=== PATIENT | female | born 1955 | race Caucasian/White ===

== ENCOUNTER → 2023-11-13 13:04 | Outpatient (REF) | payer MEDICARE, SELFPAY | LOC: HWRAD 13:04 | PROVIDERS: ATTENDING PHYSICIAN Family Medicine | DX: Z87.891 Personal history of nicotine dependence (principal); M25.551 Pain in right hip | CPT/HCPCS: 71271; 73502 ==

== ENCOUNTER → 2023-11-15 14:13 | Outpatient (REF) | payer MEDICARE, SELFPAY | LOC: HWWDC 14:13 | PROVIDERS: ATTENDING PHYSICIAN Family Medicine | DX: Z12.31 Encounter for screening mammogram for malignant neoplasm of breast (principal) | CPT/HCPCS: 77063; 77067 ==

== ENCOUNTER 2024-01-14 16:19 | Emergency (ER) | payer MEDICARE, SELFPAY ==
[2024-01-14 16:26] VITALS: BP 185/104
[2024-01-14 16:59] LABS: % Basophils 0.5 % (0-2); % Eosinophils 0.3 % (0-6); % Immature Granulocytes 0.3 % (0-0.5); % Lymphocytes 8.3 % (20.5-51.1); % Monocytes 4.8 % (1.7-9.3); % Neutrophils 85.8 % (42.2-75.2); Absolute Basophils 0.1 10^3/uL (0-0.2); Absolute Eosinophils 0.1 10^3/uL (0-0.7); Absolute Lymphocytes 1.2 10^3/uL (1.2-3.4); Absolute Monocytes 0.7 10^3/uL (0.1-0.6); Absolute Neutrophils 12.5 10^3/uL (1.4-6.5); Hematocrit 42.9 % (37.0-47.0); Hemoglobin 13.8 g/dL (12.0-16.0); Mean Corp Hgb Conc. 32.2 g/dL (33.0-37.0); Mean Corpuscular Volume 93.3 fL (81.0-99.0); Mean Platelet Volume 12.4 fL (7.4-10.4); Nucleated Red Blood Cells % 0 %; Platelet Count 226 10^3/uL (130-400); Red Cell Dist. Width 14.6 % (11.5-14.5); White Blood Cell Count 14.6 10^3/uL (4.8-10.8)
[2024-01-14 17:17] LABS: ALT (SGPT) 22 U/L (0-35); AST (SGOT) 28 U/L (14-36); Albumin 4.2 g/dl (3.5-5.0); Alkaline Phosphatase 74 U/L (38-126); Blood Urea Nitrogen 10 mg/dl (7-17); Calcium 9.9 mg/dl (8.4-10.2); Carbon Dioxide 26 mmol/L (22-30); Chloride 106 mmol/L (98-107); Glucose 103 mg/dl (70-99); Potassium 4.2 mmol/L (3.5-5.1); Sodium 140 mmol/L (135-145); Total Bilirubin 0.5 mg/dl (0.2-1.3); Total Protein 6.8 g/dl (6.3-8.2); eGFR > 60.00
[2024-01-14 17:23] LABS: Troponin I < 0.012 ng/ml
[2024-01-14 20:12] VITALS: BP 107/95
[2024-01-14 21:37] VITALS: BP 128/81
[2024-01-14 21:42] VITALS: BP 128/81
--- NOTE | 2024-01-14 21:53 | ED.GENMED ---
History of Present Illness
General
Chief Complaint: Chest Pain
Source: patient and spouse
Exam Limitations: none
Time Seen by Provider: 01/14/24 19:00
Nursing documentation reviewed up to this point in time: agreed with
History of Present Illness
History of Present Illness:
68-year-old female past medical history of hyperlipidemia, anemia presenting to the emergency department today with concerns of cough some sore throat that she felt shortly after trying to swallow an iron pill earlier today. Has had some nausea.
Denies any specific chest pain at this point did have some chest pain earlier. Symptoms have been improving over the last few hours. Denies fevers
Past History
Past History
ED Past Medical History: GERD (hiatel hernia)
Social History
Tobacco: Smoker
Alcohol: None
Drug: None
Personal:
Living: with family
Review of Systems
Review of Systems
Allergies reviewed?: Yes
All Other Systems: ROS reviewed and negative except as documented in HPI and ROS
Phy Exam
Physical Exam
Physical Exam:
GENERAL: Alert , in no apparent distress
EYE: pupils equal and reactive
NECK: Supple, no significant adenopathy.
ENT: o/p clr, mmm.
CARDIAC: Regular rate and rhythm .
LUNGS: Clear breath sounds bilaterally, no acute respiratory distress, no wheezes/rales/rhonchi
ABDOMEN: Soft, without focal tenderness, no r/g, no cvat
NEUROLOGICAL: Alert and oriented, no focal neuro deficits
SKIN: Warm and dry, skin intact.
MUSCULOSKELETAL: No edema, well perfused.
PSYCH: Normal and appropriate interaction.
Scores
Heart Score for Chest Pain Patients
STEMI patient?: No
History: Slightly or Non-Suspicious
ECG: Normal
Age: >/= 65 years
Risk Factors: 1 or 2 Risk Factors
Troponin: </= Normal Limit
Heart Score for Chest Pain Patients: 3
Heart Score Risk: 2.5% MACE over next 6 weeks
Course
Orders/Labs/Results
Orders:
Orders
01/14/24 16:21
Electrocardiogram (*1) Urgent
Reason for Study: Chest Pain
EKG- Treatment ONCE
01/14/24 16:47
Complete Blood Count/With Diff Urgent
Comprehensive Metabolic Panel Urgent
Troponin I Urgent
01/14/24 18:59
Chest [CR Chest - 2 Views ] Urgent
Comment:
Reason For Exam: cp aspiated pill?
01/14/24 19:01
Abdomen Xray - 1 View [CR Abdomen - 1 View] Urgent
Comment:
Reason For Exam: swallowed fb
Abnormal Lab Results
01/14/24
16:47
WBC 14.6 H 10^3/uL
(4.8-10.8)
MCHC 32.2 L g/dL
(33.0-37.0)
RDW 14.6 H %
(11.5-14.5)
MPV 12.4 H fL
(7.4-10.4)
Absolute Neuts (auto) 12.5 H 10^3/uL
(1.4-6.5)
Absolute Monos (auto) 0.7 H 10^3/uL
(0.1-0.6)
Neutrophils % 85.8 H %
(42.2-75.2)
Lymphocytes % 8.3 L %
(20.5-51.1)
Glucose 103 H mg/dl
(70-99)
01/14/24 16:47
01/14/24 16:47
Vital Signs
Initial and Last Documented VS:
Initial Vital Signs
Temp Pulse Resp BP Pulse Ox
98.1 F 83 22 185/104 99
01/14/24 16:26 06/24/24 16:26 01/14/24 16:26 01/14/24 16:26 01/14/24 16:26
Last Documented Vital Signs
Temp Pulse Resp BP Pulse Ox
98.1 F 87 20 128/81 96
01/14/24 16:26 01/14/24 21:42 01/14/24 21:42 01/14/24 21:42 01/14/24 21:42
MDM/Problems Addressed
MDM/Problems Addressed:
68-year-old female presenting to the emergency department today with concerns of cough shortness of breath that she thinks may have started after swallowing an iron pill. On examination here lungs are clear heart sounds are normal patient
well-appearing initial blood pressure elevated but improving without specific treatment white count of 14.6 but otherwise labs unremarkable troponin negative EKG without emergent findings x-ray of the chest and abdomen without emergent findings as
well. Patient's fully asymptomatic after few hours in the ER appears stable for outpatient follow-up and close primary care follow-up. Return precautions given. Seems very unlikely to be ACS considering seem to occur in association with coughing.
*Critical Care Note
Total Time (30-74mins, 75-104mins- exclusive of procedures): Not Applicable
ED Attending Note
-
Portions of this chart may have been created with voice recognition software.� Occasional wrong word or��sound alike� substitutions may have occurred due to the inherent limitations of voice recognition software.
Discharge Plan
Departure
Patient Disposition: Home (Routine Discharge)
Date of Disposition: 01/14/24
Time of Disposition: 21:53
Patient with high blood pressure during this ER visit?: No
Condition: Good
Covid-19: Not Applicable
Discharge Problem:
Chest pain
Instructions: Chest Pain PCP Follow Up
Prescriptions:
No Action
pantoprazole 40 MG tablet,delayed release (DR/EC)
40 mg PO DAILY
Referrals:
Blaze Wakefield DO [Family Provider] -
Activity Restrictions/Additional Instructions:
You came to the emergency department today with concerns of cough and chest discomfort after she took her pills earlier today. Here your reassuring assessment. Please feel close with your primary care doctor. Return to the emergency department
for any worsening, new or concerning symptoms.
Interventions
Interventions:
*Risk Screen - Suicide Last Done: 01/14/24 19:14
*General Assessment Last Done: 01/14/24 19:14
*Neglect/Abuse Screening Last Done: 01/14/24 19:14
ED- Fall Risk Assessment Last Done: 01/14/24 19:14
*ED COVID-19 Vaccine History Last Done: 01/14/24 19:14
*Nursing Disposition Last Done: 01/14/24 22:00
ED- Cardiac Assessment Last Done: 01/14/24 19:14
Discharge Date and Time
Discharge Date/Time: 01/14/24 22:00
Print Language: TURKISH
== END 2024-01-14 22:00 | disposition home or self-care (01) ==
LOC: EMR 16:19
PROVIDERS: Emergency Medicine; EMERGENCY PHYSICIAN Student in an Organized Health Care Education/Training Program; FAMILY PHYSICIAN Family Medicine
DX: R07.89 Other chest pain (principal); E78.5 Hyperlipidemia, unspecified; F17.200 Nicotine dependence, unspecified, uncomplicated
CPT/HCPCS: 99285; 71046; 74018; 80053; 84484; 85025; 93005

== ENCOUNTER → 2024-03-06 13:10 | Outpatient (REF) | payer MEDICARE, SELFPAY | LOC: HWRCS 13:10 | PROVIDERS: ATTENDING PHYSICIAN Internal Medicine Cardiovascular Disease; FAMILY PHYSICIAN Family Medicine | DX: R06.02 Shortness of breath (principal) | CPT/HCPCS: 93306 ==